=== PATIENT | male | born 1990 | race Caucasian/White ===

== ENCOUNTER 2022-12-30 05:01 | Emergency (ER) | payer SELFPAY ==
[~2022-12-30] VITALS: Ht 172.7 cm; Wt 95.0 kg
[2022-12-30 09:36] LABS: AMPHET/METH SCREEN,URINE NEGATIVE (NEGATIVE); BARBITURATE SCREEN, URINE NEGATIVE (NEGATIVE); BENZODIAZEPINES SCREEN,URINE NEGATIVE (NEGATIVE); CANNABINOID SCREEN,URINE NEGATIVE (NEGATIVE); COCAINE SCREEN,URINE POSITIVE (NEGATIVE); METHADONE SCREEN, URINE NEGATIVE (NEGATIVE); OPIATE SCREEN,URINE NEGATIVE (NEGATIVE); PHENCYCLIDINE SCREEN,URINE NEGATIVE (NEGATIVE)
[2022-12-30 10:02] VITALS: BP 136/87
== END 2022-12-30 10:23 | disposition home or self-care (01) ==
LOC: EMS 05:03
DX: F14.129 Cocaine abuse with intoxication, unspecified (principal); F22 Delusional disorders; F41.9 Anxiety disorder, unspecified
CPT/HCPCS: 80307; 99283

== ENCOUNTER 2023-05-30 22:39 | Emergency (ER) | payer SELFPAY ==
[~2023-05-30] VITALS: Ht 180.3 cm; Wt 109.1 kg
[2023-05-30 23:16] VITALS: TEMP 98.9
[2023-05-30] MEDS ORDERED: SODIUM CHLORIDE 0.9% 1,000 ML IV ONE (23:45)
[2023-05-31 00:49] LABS: BASOPHILS % (AUTO) 0.4 % (0.0-2.0); EOSINOPHILS % (AUTO) 0.4 % (1.0-6.0); HEMATOCRIT 43.3 % (41-53); HEMOGLOBIN 14.8 g/dL (13.5-17.5); LYMPHOCYTES # (AUTO) 1.3 K/uL (1.0-4.8); LYMPHOCYTES % (AUTO) 10.4 % (22.0-44.0); MEAN CORPUSCULAR HEMOGLOBIN 30.5 pg (26.0-34.0); MEAN CORPUSCULAR HGB CONC 34.2 G/dL (31.0-37.0); MEAN CORPUSCULAR VOLUME 89 fL (80-100); MONOCYTES # (AUTO) 1.1 K/uL (0.1-1.0); MONOCYTES % (AUTO) 9.1 % (2.0-9.0); NEUTROPHILS # (AUTO) 9.9 K/uL (1.8-7.7); NEUTROPHILS % (AUTO) 79.7 % (40.0-70.0); PLATELET COUNT (AUTO) 296 K/uL (150-450); RED BLOOD CELL COUNT(AUTO) 4.85 MIL/uL (4.50-5.90); RED CELL DISTRIBUTION WIDTH 13.9 % (11.5-14.5)
[2023-05-31 00:55] LABS: CALCIUM, TOTAL 8.3 mg/dL (8.8-10.5); CREATININE 1.41 mg/dL (0.60-1.30)
[2023-05-31] MEDS ORDERED: SODIUM CHLORIDE 0.9% 1,000 ML IV ONE (01:15)
[2023-05-31 01:47] VITALS: BP 142/89; PULSE 99; RESP 20
== END 2023-05-31 02:00 | disposition home or self-care (01) ==
LOC: EMS 22:40
DX: R41.82 Altered mental status, unspecified (principal); F14.10 Cocaine abuse, uncomplicated; F41.9 Anxiety disorder, unspecified
CPT/HCPCS: 99284; 96360; 96361; 80048; 82550; 85025; 36415; 93005; J7030

== ENCOUNTER 2025-06-11 04:09 | Emergency (ER) | payer MEDICAID ==
[~2025-06-11] VITALS: Ht 177.8 cm; Wt 220.0 kg
[2025-06-11 04:19] VITALS: TEMP 97.4
[2025-06-11 06:30] VITALS: BP 114/55; PULSE 89; RESP 20; O2SAT 99
[2025-06-11] MEDS ORDERED: IBUP-1492 PO (06:52)
== END 2025-06-11 07:20 | disposition home or self-care (01) ==
LOC: EMS 04:11
DX: S80.01XA Contusion of right knee, initial encounter (principal); F11.90 Opioid use, unspecified, uncomplicated; F15.90 Other stimulant use, unspecified, uncomplicated; W13.8XXA Fall from, out of or through other building or structure, initial encounter; Y93.89 Activity, other specified; Y92.89 Other specified places as the place of occurrence of the external cause; Y99.8 Other external cause status
CPT/HCPCS: 99283